=== PATIENT | female | born 1995 | race Caucasian/White ===

== ENCOUNTER 2016-07-07 11:52 | Emergency (ER) | payer BC ==
--- NOTE | 2016-07-07 12:30 | ER Document Report ---
ED General - General Chief Complaint: Irregular Pulse Stated Complaint: CHEST TIGHTNESS Mode of Arrival: Ambulatory Information source: Patient Notes: 20-year-old female presents with complaints of heart racing shortness of breath chest tightness. Patient notes she was at work and coworkers counted her heart rate at 180 bpm. On arrival to emergency department patient tolerated 140 bpm. Patient notes extensive family history of sinus tachycardia, family members state they don't have a specific reason for it but they have all been placed on metoprolol for rate control. Patient denies any previous similar episodes denies any stressors TRAVEL OUTSIDE OF THE [place] IN LAST 30 DAYS: No - HPI Onset: Just prior to arrival Onset/Duration: Sudden Quality of pain: Other Severity: Mild Pain Level: 1 Associated symptoms: Chest pain, Shortness of breath Exacerbated by: Denies Relieved by: Denies Similar symptoms previously: No Recently seen / treated by doctor: No Past Medical History - Social History Smoking Status: Never Smoker Cigarette use (# per day): No Chew tobacco use (# tins/day): No Smoking Education Provided: No Family History: Reviewed & Not Pertinent Patient has suicidal ideation: No Patient has homicidal ideation: No Renal/ Medical History: Denies: Hx Peritoneal Dialysis Review of Systems - Review of Systems Notes: REVIEW OF SYSTEMS: CONSTITUTIONAL : Denies fever, chills, or sweats. Denies recent illness. EENT: Denies eye, ear, throat, or mouth pain or symptoms. Denies nasal or sinus congestion or discharge. Denies throat, tongue, or mouth swelling or difficulty swallowing. CARDIOVASCULAR: palpitations chest pain RESPIRATORY: sob GASTROINTESTINAL: Denies abdominal pain or distention. Denies nausea, vomiting , or diarrhea. Denies blood in vomitus, stools, or per rectum. Denies black, tarry stools. Denies constipation. GENITOURINARY: Denies difficulty urinating, painful urination, burning, frequency, blood in urine, or discharge. FEMALE GENITOURINARY: Denies vaginal bleeding, heavy or abnormal periods, irregular periods. Denies vaginal discharge or odor. MUSCULOSKELETAL: Denies back or neck pain or stiffness. Denies joint pain or swelling. SKIN: Denies rash, lesions or sores. HEMATOLOGIC : Denies easy bruising or bleeding. LYMPHATIC: Denies swollen, enlarged glands. NEUROLOGICAL: Denies confusion or altered mental status. Denies passing out or loss of consciousness. Denies dizziness or lightheadedness. Denies headache. Denies weakness or paralysis or loss of use of either side. Denies problems with gait or speech. Denies sensory loss, numbness, or tingling. Denies seizures. PSYCHIATRIC: Denies anxiety or stress. Denies depression, suicidal ideation, or homicidal ideation. ALL OTHER SYSTEMS REVIEWED AND NEGATIVE. Dictation was performed using [employer] voice recognition software PHYSICAL EXAMINATION: GENERAL: Well-appearing, well-nourished and in no acute distress. HEAD: Atraumatic, normocephalic. EYES: Pupils equal round and reactive to light, extraocular movements intact, conjunctiva are normal. ENT: Nares patent, oropharynx clear without exudates. Moist mucous membranes. NECK: Normal range of motion, supple without lymphadenopathy LUNGS: Breath sounds clear to auscultation bilaterally and equal. No wheezes rales or rhonchi. HEART: sinus tachycardia ABDOMEN: Soft, nontender, nondistended abdomen. No guarding, no rebound. No masses appreciated. Female : deferred Musculoskeletal: Normal range of motion, no pitting or edema. No cyanosis. NEUROLOGICAL: Cranial nerves grossly intact. Normal speech, normal gait. Normal sensory, motor exams PSYCH: Normal mood, normal affect. SKIN: Warm, Dry, normal turgor, no rashes or lesions noted. Physical Exam - Vital signs Vitals: Temp Pulse Resp BP Pulse Ox 99.3 F 144 H 16 124/85 100 07/07/16 12:06 07/07/16 12:06 07/07/16 12:06 07/07/16 12:06 07/07/16 12:06 Course - Re-evaluation Re-evalutation: 07/07/16 12:30 pt in sinus tachycardia, awaiting lab work imaging 07/07/16 15:[address] TO ozuna and negative workup thus far, he believes patient should be discharged home on metoprolol 25 mg twice a day which I'm in agreement with 07/07/16 16:38 Patient's heart rate has improved significantly heart rate 101 after metoprolol will DC home with follow-up with EP physician After performing a Medical Screening Examination, I estimate there is LOW risk for RUPTURED ESOPHAGUS, PNEUMOTHORAX, PULMONARY EMBOLISM, ACUTE CORONARY SYNDROME, OR THORACIC AORTIC DISSECTION, thus I consider the discharge disposition reasonable. I have reevaluated this patient multiple times and no significant life threatening changes are noted. The patient and I have discussed the diagnosis and risks, and we agree with discharging home with close follow-up. We also discussed returning to the Emergency Department immediately if new or worsening symptoms occur. We have discussed the symptoms which are most concerning (e.g., bloody sputum, worsening pain or shortness of breath) that necessitate immediate return. 07/07/16 16:39 - Vital Signs Vital signs: Temp Pulse Resp BP Pulse Ox 99.3 F 144 H 18 114/71 96 07/07/16 12:06 07/07/16 12:06 07/07/16 16:12 07/07/16 16:12 07/07/16 16:12 - Laboratory Result Diagrams: 07/07/16 12:27 07/07/16 12:27 Laboratory results interpreted by me: 07/07/16 07/07/16 12:27 12:27 Seg Neutrophils % 89.4 H Lymphocytes % 5.4 L Total Bilirubin 1.4 H Total Protein 8.9 H Albumin 5.4 H - Diagnostic Test Radiology reviewed: Image reviewed, Reports reviewed - EKG Interpretation by Me EKG shows normal: Sinus rhythm, Distant, Intervals, QRS Complexes Rate: Tachycardia Discharge - Discharge Clinical Impression: Sinus tachycardia Condition: Stable Disposition: HOME, SELF-CARE Instructions: Sinus Tachycardia (OM), Beta Blockers (OM) Additional Instructions: Please follow-up with Dr. Doug Gomez in 2-3 days for reevaluation at * Clinical cardiac electrophysiology * [facility] * [address] [address], [place] Prescriptions: Metoprolol Tartrate 25 mg PO BID #30 tablet
[2016-07-07] MEDS: NORMAL SALINE 1000 ML 1,000 ML IV PRN ×2 (12:36→15:14)
[2016-07-07 12:45] LABS: ABSOLUTE LYMPHOCYTES (AUTO) 0.5 10^3/uL (0.5-4.7); ABSOLUTE MONOCYTES (AUTO) 0.4 10^3/uL (0.1-1.4); ABSOLUTE NEUT (AUTO) 7.8 10^3/uL (1.7-8.2); BASOPHILS % (AUTO) 0.2 % (0-2); EOSINOPHILS % (AUTO) 0.3 % (0-6); HEMATOCRIT 42.2 % (36.0-47.0); HEMOGLOBIN 14.4 g/dL (12.0-15.5); LYMPHOCYTES % (AUTO) 5.4 % (13-45); MEAN CORPUSCULAR HEMOGLOBIN 30.5 pg (27.0-33.4); MEAN CORPUSCULAR HGB CONC 34.1 g/dL (32.0-36.0); MEAN CORPUSCULAR VOLUME 90 fl (80-97); MONOCYTES % (AUTO) 4.7 % (3-13); RED BLOOD COUNT 4.71 10^6/uL (3.72-5.28); RED CELL DISTRIBUTION WIDTH 13.7 % (11.5-14.0); SEGMENTED NEUTROPHILS % (AUTO) 89.4 % (42-78); WHITE BLOOD COUNT 8.7 10^3/uL (4.0-10.5)
[2016-07-07 13:01] LABS: ALANINE AMINOTRANSFERASE 31 U/L (9-52); ALBUMIN 5.4 g/dL (3.5-5.0); ALKALINE PHOSPHATASE 57 U/L (38-126); ANION GAP 15 (5-19); ASPARTATE AMINO TRANSFERASE 23 U/L (14-36); BILIRUBIN,DIRECT 0.4 mg/dL (0.0-0.4); BILIRUBIN,TOTAL 1.4 mg/dL (0.2-1.3); BLOOD UREA NITROGEN 9 mg/dL (7-20); CALCIUM 10.2 mg/dL (8.4-10.2); CARBON DIOXIDE 25 mmol/L (22-30); CHLORIDE 104 mmol/L (98-107); CREATININE RESULT 0.67 mg/dL (0.52-1.25); GLUCOSE 82 mg/dL (75-110); POTASSIUM 3.6 mmol/L (3.6-5.0); SODIUM 143.8 mmol/L (137-145); TOTAL PROTEIN 8.9 g/dL (6.3-8.2)
[2016-07-07] MEDS ORDERED: METOPROLOL TARTRATE PF/INJ 5 MG/5 ML SDV IV ONE (14:33)
[2016-07-07] MEDS ORDERED: IBUPROFEN 800 MG TABLET PO ONE (14:33)
--- NOTE | 2016-07-07 18:12 | EKG REPORT ---
SEVERITY:- ABNORMAL ECG - SINUS TACHYCARDIA NONSPECIFIC ST-T CHANGES- INFERIOR-LATERAL LEADS : Confirmed by: Ismael Reddy MD 07-Jul-2016 18:12:01
[2016-07-07 18:27] VITALS: BP 105/65
== END 2016-07-07 16:55 | disposition home or self-care (01) ==
LOC: ER 11:52
DX: R00.0 Tachycardia, unspecified (principal); R07.9 Chest pain, unspecified; R06.02 Shortness of breath
CPT/HCPCS: 93005; 99284; 96361; 96374; 36415; 84443; 85025; 80053; 71275; 93010; J3490; J7030

== ENCOUNTER 2017-12-26 07:09 | Inpatient (IN) | payer BC ==
[2017-12-25 11:06] LABS: APPEARANCE,URINE SLIGHTLY-CLOUDY; BILIRUBIN,URINE NEGATIVE (NEGATIVE); COLOR,URINE YELLOW; GLUCOSE, URINE NEGATIVE (NEGATIVE); KETONES,URINE NEGATIVE (NEGATIVE); LEUKOCYTE ESTERASE,URINE SMALL (NEGATIVE); NITRITE,URINE NEGATIVE (NEGATIVE); PROTEIN,URINE NEGATIVE (NEGATIVE); URINE SPECIFIC GRAVITY 1.009; UROBILINOGEN,URINE NEGATIVE mg/dL (<2.0)
[2017-12-25 11:08] LABS: HEMATOCRIT 36.4 % (36.0-47.0); HEMOGLOBIN 12.7 g/dL (12.0-15.5); MEAN CORPUSCULAR HEMOGLOBIN 31.7 pg (27.0-33.4); MEAN CORPUSCULAR VOLUME 91 fl (80-97); PLATELET COUNT 213 10^3/uL (150-450); RED BLOOD COUNT 4.02 10^6/uL (3.72-5.28); RED CELL DISTRIBUTION WIDTH 13.9 % (11.5-14.0); WHITE BLOOD COUNT 10.7 10^3/uL (4.0-10.5)
[2017-12-25 11:18] LABS: URINE AMPHETAMINES SCREEN NEGATIVE; URINE BARBITURATES SCREEN NEGATIVE; URINE BENZODIAZEPINES SCREEN NEGATIVE; URINE COCAINE SCREEN NEGATIVE; URINE MARIJUANA (THC) SCREEN NEGATIVE; URINE METHADONE SCREEN NEGATIVE; URINE PHENCYCLIDINE SCREEN NEGATIVE
[2017-12-25 11:38] LABS: ABSOLUTE LYMPHOCYTES# (MANUAL) 1.3 10^3/uL (0.5-4.7); ABSOLUTE MONOCYTES # (MANUAL) 0.6 10^3/uL (0.1-1.4); ABSOLUTE NEUTROPHILS# (MANUAL) 8.8 10^3/uL (1.7-8.2); BAND NEUTROPHILS % (MANUAL) 6 % (3-5); BASOPHILS % (MANUAL) 0 % (0-2); EOSINOPHILS % (MANUAL) 0 % (0-6); LYMPHOCYTES % (MANUAL) 12 % (13-45); MONOCYTES % (MANUAL) 6 % (3-13); SEGMENTED NEUTROPHILS % (MAN) 76 % (42-78); TOTAL CELLS COUNTED 100
[2017-12-25 11:39] LABS: PLATELET COMMENT ADEQUATE; RBC MORPHOLOGY COMMENT NORMO-CYTIC/CHROMIC
[~2017-12-26 07:09] MED LIST: AZITHROMYCIN 500 MG in DEXTROSE 5%-WATER 250 ML IV PRN; CEFAZOLIN 1 GM/D5W RTU 1 GM/50 ML RTUPB IV PRN; LACTATED RINGERS 1000 ML IV PRN; LIDOCAINE 0.5% INJ-PF (5 MG/ML) 50 ML SDV SUBCUT PRN; RINGERS SOLUTION,LACTATED 1,000 ML IV PRN
[2017-12-26] MEDS ORDERED: BUPIVACAINE HCL/DEX-WATER/PF 15 MG/2 ML AMPULE ONE (08:36)
[2017-12-26] MEDS ORDERED: OXYTOCIN 10 UNIT/ML VIAL ONE (09:58)
[2017-12-26] MEDS ORDERED: METHYLERGONOVINE MALEATE INJ/PF 0.2 MG/1 ML AMPULE ONE (09:59)
[2017-12-26] MEDS ORDERED: FENTANYL CITRATE INJ/PF 100 MCG/2 ML AMPUL ONE (09:59)
[2017-12-26] MEDS ORDERED: ACETAMINOPHEN 1,000 MG/100 ML RTUPB IV ONE (09:59)
[2017-12-26] MEDS ORDERED: MIDAZOLAM 2 MG/2 ML INJ ONE (09:59)
[2017-12-26] MEDS ORDERED: EPHEDRINE SULFATE INJ 50 MG/1 ML AMPULE ONE (09:59)
[2017-12-26] MEDS ORDERED: OXYTOCIN/NORMAL SALINE 20 UNIT/1,000 ML RTUINJ ONE (09:59)
[2017-12-26] MEDS ORDERED: ONDANSETRON HCL INJ/PF 4 MG/2 ML SDV ONE (09:59)
[2017-12-26] MEDS ORDERED: MORPHINE SULFATE 10 MG/ML INJ IV PRN (10:36)
[2017-12-26] MEDS ORDERED: MEPERIDINE HCL/PF INJ 25 MG/1 ML DISP.SYRIN IV PRN (10:36)
[2017-12-26] MEDS ORDERED: ONDANSETRON HCL INJ/PF 4 MG/2 ML SDV IV PRN (10:36)
[2017-12-26] MEDS ORDERED: DIPHENHYDRAMINE HCL 50 MG/ML VIAL IV PRN (10:36)
[2017-12-26] MEDS ORDERED: FENTANYL CITRATE INJ/PF 100 MCG/2 ML AMPUL IV PRN ×3 (10:36)
[2017-12-26] MEDS ORDERED: PROMETHAZINE HCL INJ 25 MG/1 ML VIAL IV PRN ×3 (10:36→10:53)
[2017-12-26] MEDS ORDERED: OXYCODONE-ACETAMINOPHEN 5-325 MG TABLET PO PRN ×3 (10:36→10:53)
[2017-12-26] MEDS ORDERED: ACETAMINOPHEN 1,000 MG/100 ML RTUPB IV PRN (10:53)
[2017-12-26] MEDS ORDERED: MEASLES,MUMPS&RUBELLA VACC/PF 0.5 ML VIAL SUBCUT PRN (10:53)
[2017-12-26] MEDS ORDERED: OXYTOCIN/NORMAL SALINE 20 UNIT/1,000 ML RTUINJ IV PRN (10:53)
[2017-12-26] MEDS ORDERED: DIPH/PERTUSS(ACELL)/TETANUS VAC/PF 0.5 ML SYR (>=10YO) IM PRN (10:53)
[2017-12-26] MEDS ORDERED: MORPHINE SULFATE 10 MG/ML INJ IM PRN (10:53)
[2017-12-26] MEDS ORDERED: SIMETHICONE 80 MG TAB.CHEW PO PRN (10:53)
[2017-12-26] MEDS ORDERED: ACETAMINOPHEN 325 MG TABLET PO PRN (10:53)
--- NOTE | 2017-12-26 10:57 | PDOC DELIVERY SUMMARY ---
Delivery Summary - Maternal Hx : I LINDY: 01/[birth year] Gestational Age: 39+1 Risk Factors: Other Ruptured Membranes: AROM Fluids: Clear - Delivery Labor: Not In Labor Presentation: Breech Heart Rate Monitoring: Done Pre-Operatively Support Person Present: Yes - Medications Type of Anesthesia:: Spinal
--- NOTE | 2017-12-26 11:06 | OPERATIVE REPORT E ---
Operative Report NAME: DARRELL CM : 1995 AGE: 22Y DATE OF SURGERY: 12/26/2017 ROOM: 215 PREOPERATIVE DIAGNOSIS: IUP at term with breech presentation. POSTOPERATIVE DIAGNOSIS: IUP at term with breech presentation. OPERATION: Primary low-transverse with delivery of a viable female, 6 pounds 9 ounces. SURGEON: Patricia ZABALA M.D. ANESTHESIA: Spinal. ESTIMATED BLOOD LOSS: Less than 600 mL. TISSUE REMOVED: Placenta. PROCEDURE: The patient was placed in a supine position, rolled on her right side, prepped and draped in a sterile fashion. Pfannenstiel incision was made. The incision was extended through the subcutaneous tissue and fascia with sharp dissection. Fascia was sharply divided. Rectus muscle was bluntly and sharply divided. Parietal peritoneum was entered with sharp dissection. Uterus was nicked in the midline and extended bilaterally. Infant was then delivered via breech extraction through the uteroabdominal incision, nose and mouth suctioned with bulb syringe, cord was clamped, and the was passed from the table. The placenta was manually extracted. Uterus was closed in 2 layers, the first a running stitch of 0 Vicryl and the second a Lembert stitch imbricating the first layer. Hemostasis was noted. The fascia was then closed with 0 Vicryl and the skin was closed with subcutaneous absorbable arnav. The patient tolerated it well and was taken to the recovery room in good condition and to nursery in good condition. DICTATING PHYSICIAN: Patricia ZABALA M.D. [id number] Y#: [id number] ID: [id number] JOB#: [id number] ACCT: [id number] cc:Patricia ZABALA M.D. >
[2017-12-26] MEDS ORDERED: KETOROLAC TROMETHAMINE INJ/PF 30 MG/1 ML SDV IV SCH (14:00)
[2017-12-26] MEDS: DOCUSATE SODIUM 100 MG CAPSULE PO SCH (18:16)
[2017-12-26] MEDS: KETOROLAC TROMETHAMINE INJ/PF 30 MG/1 ML SDV IV SCH (18:16)
[2017-12-26] MEDS: OXYCODONE-ACETAMINOPHEN 5-325 MG TABLET PO PRN ×2 (18:20→23:53)
[2017-12-27] MEDS: KETOROLAC TROMETHAMINE INJ/PF 30 MG/1 ML SDV IV SCH (02:23)
[2017-12-27 06:47] LABS: HEMATOCRIT 34.1 % (36.0-47.0); HEMOGLOBIN 11.7 g/dL (12.0-15.5); MEAN CORPUSCULAR HEMOGLOBIN 31.4 pg (27.0-33.4); MEAN CORPUSCULAR HGB CONC 34.3 g/dL (32.0-36.0); MEAN CORPUSCULAR VOLUME 92 fl (80-97); PLATELET COUNT 186 10^3/uL (150-450); RED BLOOD COUNT 3.72 10^6/uL (3.72-5.28); RED CELL DISTRIBUTION WIDTH 13.9 % (11.5-14.0); WHITE BLOOD COUNT 12.9 10^3/uL (4.0-10.5)
[2017-12-27] MEDS: PRENATAL VITAMIN W DHA CAPSULE PO SCH (09:46)
[2017-12-27] MEDS: DOCUSATE SODIUM 100 MG CAPSULE PO SCH ×2 (09:46→17:36)
--- NOTE | 2017-12-27 11:17 | PDOC PROGRESS REPORT ---
Subjective-OB Progress Note for:: 12/27/17 Subjective: Pt doing well, no concerns. She reports light bleeding, reg diet, +flatus and is ambulatory. Physical Exam (OB) Vital Signs: Temp Pulse Resp BP Pulse Ox 98.3 F 58 L 16 116/67 98 12/27/17 07:36 12/27/17 07:36 12/27/17 03:14 12/27/17 07:36 12/27/17 07:36 Intake & Output 12/26/17 12/27/17 12/28/17 06:59 06:59 06:59 Intake Total 4251 Output Total 2550 Balance 1701 Weight 63.5 kg 63.503 kg - PIH/Pre-Eclampsia Clonus: Negative - Dressing Removed: Yes Incision: Open Closure Type: in. staple - Lochia Lochia Amount: Scant < 10 ml Lochia Color: Rubra/Red - Abdomen Description: Tender Hernia Present: No Fundal Description: Firm, Midline Fundal Height: u/u - u/2 Objective-Diagnostic Laboratory: 12/27/17 06:37 12/27/17 06:37 WBC 12.9 H RBC 3.72 Hgb 11.7 L Hct 34.1 L MCV 92 MCH 31.4 MCHC 34.3 RDW 13.9 Plt Count 186 Assessment and Plan(PN) - Assessment and Plan (1) Breech presentation delivered Is this a current diagnosis for this admission?: Yes (2) Status post primary low transverse section Is this a current diagnosis for this admission?: Yes - Time Spent with Patient Time with patient: Less than 15 minutes Medications reviewed and adjusted accordingly: Yes - Disposition Anticipated Discharge: Home Within: within 24 hours
[2017-12-27] MEDS: IBUPROFEN 800 MG TABLET PO SCH ×2 (13:34→17:35)
[2017-12-28] MEDS: IBUPROFEN 800 MG TABLET PO SCH ×2 (00:05→05:38)
[2017-12-28 08:27] VITALS: BP 119/81
--- NOTE | 2017-12-28 10:02 | PDOC DISCHARGE SUMMARY ---
Final Diagnosis Discharge Date: 12/28/17 - Final Diagnosis (1) Breech presentation delivered Is this a current diagnosis for this admission?: Yes (2) Status post primary low transverse section Is this a current diagnosis for this admission?: Yes Discharge Data - Discharge Medication Home Medications: No122/Iron/Folic Acid [ Multi Tablet] 1 tab PO DAILY 12/12/17 Reason(s) for Admission: Ceasarean Section-Primary, Obstetric Complications Intrapartum Procedure(s): : Low Cervical, Transverse - Diagnosis Test Laboratory: Temp Pulse Resp BP Pulse Ox 98.3 F 55 L 16 98/46 L 98 12/27/17 03:14 12/27/17 03:14 12/27/17 03:14 12/27/17 03:14 12/27/17 03:14 12/25/17 12/25/17 12/27/17 10:04 10:08 06:37 RBC 4.02 3.72 Hgb 12.7 11.7 L Hct 36.4 34.1 L Urine Opiates Screen NEGATIVE - Discharge information/Instructions Discharge Activity: Balance Activity w/Rest, No Lifting Over 10 Pounds, No Lifting/Push/Pulling, Pelvic Rest, No tub bath Discharge Diet: Regular Disposition: HOME, SELF-CARE Follow [facility] with: [facility] in: 5, Days
[2017-12-28] MEDS: DOCUSATE SODIUM 100 MG CAPSULE PO SCH (10:46)
[2017-12-28] MEDS: PRENATAL VITAMIN W DHA CAPSULE PO SCH (10:46)
== END 2017-12-28 14:50 | disposition home or self-care (01) | DRG 788 ==
LOC: 2S 07:09
PROVIDERS: ADMIT Obstetrics & Gynecology Gynecology; ATTEND Obstetrics & Gynecology Gynecology
PROC: 4A1HXCZ Monitoring of Products of Conception, Cardiac Rate, External Approach (ICD-10-PCS; 2017-12-26)
PROC: 3E02340 Introduction of Influenza Vaccine into Muscle, Percutaneous Approach (ICD-10-PCS; 2017-12-26)
PROC: 10D00Z1 Extraction of Products of Conception, Low, Open Approach (ICD-10-PCS; principal; 2017-12-26 10:00)
DX: O32.1XX0 Maternal care for breech presentation, not applicable or unspecified (principal); Z23 Encounter for immunization; Z3A.39 39 weeks gestation of pregnancy; Z37.0 Single live birth
CPT/HCPCS: 1961; 36415; 80307; 81001; 85025; 85027; 86850; 86900; 86901; 90471; 90686; 94799; G0008; J0131; J0456; J0690; J1885; J2210; J2250; J2405; J2590; J3010; J3490; J7060